=== PATIENT | female | born 1950 | race Caucasian/White ===

== ENCOUNTER 2018-10-15 16:20 | Inpatient (IN) | payer MEDICAID, MEDICARE ==
[~2018-10-15] VITALS: Ht 167.6 cm; Wt 77.1 kg
[~2018-10-15 16:20] MED LIST: ASPI81CT95 PO; ATEN50TA2 PO; CIME400T11 PO; LISI-420 PO; RANI150T8 PO; VIC PO
--- NOTE | 2018-10-15 16:21 | NUR ---
PT BIBA BLS TO BED 7 Addendum: 10/15/18 at 1622 by MED[facility] BED 1
--- NOTE | 2018-10-15 16:21 | NUR ---
NO CALL WAS RECIEVED BEFORE PT ARRIVAL
[2018-10-15 16:25] VITALS: BP 140/67
--- NOTE | 2018-10-15 16:25 | NUR ---
68Y/F BIBA C/O CHEST PAIN AT APPROX. 1530 NON RADIATING/ NON PROVOKED. WITH MINIMAL SOB, NO NAUSEA, NO VOMITING. 02 NRB ON ARRIVAL/FIELD. PT HAS PAIN ON RASH ON GLADYS LEGS. GLADYS LEGS ARE RED AND SWOLLEN WITH BROKEN SKIN. PT AAOX4, VSS AT THIS TIME, BED DOWN, LOW, LOCKED, BEDRAIL UP X 1, ER MD AWARE AND NOTIFIED OF PT STATUS. HX. SHINGLES X3 WKS. ON MEDICATION PER PATIENT. DONT REMEMBER MED. AT THIS TIME. STENTS X2.
--- NOTE | 2018-10-15 16:25 | NUR ---
pt has loulou arm rash and right leg
--- NOTE | 2018-10-15 16:31 | NUR ---
RAD AT BEDSIDE
--- NOTE | 2018-10-15 16:35 | NUR ---
LAB AT BEDSIDE
[2018-10-15] MEDS ORDERED: MORPHINE SULFATE 4 MG/ML SYR IVP ONE (16:50)
[2018-10-15 17:08] LABS: ALBUMIN 3.7 g/dL (3.4-5.0); ANION GAP 8.9 (8-16); CARBON DIOXIDE 27.1 mmol/L (21-32); CREATININE 0.9 mg/dL (0.6-1.3); TOTAL BILIRUBIN 0.2 mg/dL (0.0-1.0)
[2018-10-15] MEDS ORDERED: ONDANSETRON 4 MG/2 ML VIAL IVP PRN (17:50)
[2018-10-15 18:13] LABS: BASOPHILS % (AUTO) 0.4 % (0.0-2.0); EOSINOPHILS # (AUTO) 0.2 K/uL (0-0.4); HEMATOCRIT 37.1 % (36-48); HEMOGLOBIN 12.5 g/dL (12.0-16.0); LYMPHOCYTES % (AUTO) 18.8 % (20.5-51.1); MEAN CORPUSCULAR HEMOGLOBIN 31 pg (27-31); MEAN CORPUSCULAR HGB CONC 34 g/dL (33-37); MONOCYTES # (AUTO) 0.6 K/uL (0.8-1.0); NEUTROPHILS # (AUTO) 7.7 K/uL (1.8-7.7); NEUTROPHILS % (AUTO) 72.8 % (42.2-75.2); PLATELET COUNT (AUTO) 231 K/uL (140-450); RED BLOOD CELL COUNT(AUTO) 4.03 MIL/uL (4.20-5.40); RED CELL DISTRIBUTION WIDTH 13.3 % (11.6-13.7); WHITE BLOOD COUNT (AUTO) 10.6 K/uL (4.8-10.8)
--- NOTE | 2018-10-15 18:21 | NUR ---
Patient will be admitted to care of dr. love. Admited to tele floor. Will go to room 124-b. Belongings list completed. Report to cleopatra nuñez.
--- NOTE | 2018-10-15 18:21 | NUR ---
PT TAKEN TO TELE FLOOR BY RN TATUM AND EMT ANIVAL
[2018-10-15 18:31] LABS: PROTHROMBIN TIME 9.5 secs (10.8-13.4)
[2018-10-15 18:32] LABS: FREE T4 (FREE THYROXINE) 0.64 ng/dL (0.76-1.46); MAGNESIUM 1.8 mg/dL (1.8-2.4); PHOSPHORUS 3.1 mg/dL (2.5-4.9); THYROID STIMULATING HORMONE 1.37 uIU/mL (0.34-3.74)
[2018-10-15 18:35] VITALS: BP 137/61
[2018-10-15] MEDS: NACL 0.9% 500 ML IV SCH (19:10)
[2018-10-15] MEDS ORDERED: NITROGLYCERIN 0.4 MG TAB SL PRN (19:15)
[2018-10-15] MEDS ORDERED: PANT20EC PO (19:28)
[2018-10-15] MEDS ORDERED: ELA50 PO (19:28)
[2018-10-15] MEDS ORDERED: DONE10TA10 PO (19:28)
[2018-10-15] MEDS ORDERED: ATOR20TA PO (19:28)
[2018-10-15] MEDS ORDERED: METO25TA PO (19:28)
[2018-10-15] MEDS ORDERED: ALEN70TA9 PO (19:28)
--- NOTE | 2018-10-15 19:30 | NUR ---
RECEIVED PT FROM JOSE CASON PT AAOX4 AMBULATES WITH SMALL PARTS ASSEMBLER ADMITTING FOR CHEST PAIN, DENIES CHEST PAIN ON ADMISSION, PAIN ;MEDIC WAS GIVEN IN ER, ON TELEMETRY SR, HL ON RT FA PATENT PT ISORIENTED TO ;THE FLOOR CALL LIGHT WITHIN REACH
[2018-10-15] MEDS ORDERED: SERT100T PO (19:38)
[2018-10-15] MEDS ORDERED: GABA300C PO (19:38)
[2018-10-15 20:00] VITALS: BP 130/65
[2018-10-15] MEDS: HYDROcodone/APAP 7.5/325 MG 1 TAB PO PRN (20:52)
[2018-10-15] MEDS: AMITRIPTYLINE 50 MG TAB PO SCH (21:00)
[2018-10-15] MEDS ORDERED: METOPROLOL 25 MG TAB PO SCH (21:00)
[2018-10-15] MEDS: DOCUSATE SODIUM 100 MG GELCAP PO SCH (21:47)
[2018-10-15] MEDS: METOPROLOL 25 MG TAB PO SCH (21:48)
--- NOTE | 2018-10-15 22:00 | NUR ---
PT WATCHING TV NOT DISTRESS NOTED ON TELEMETRY SR , IV ON RT FA INFUSING WELL
[2018-10-15] MEDS ORDERED: MORPHINE SULFATE 4 MG/ML SYR IVP PRN (22:25)
[2018-10-15] MEDS ORDERED: traZODone 50 MG TAB PO ONE (22:25)
[2018-10-16] VITALS: BP 122/62
--- NOTE | 2018-10-16 01:00 | NUR ---
PT SLEEPING WELL ON TELEMETRY SR , IVINFUSING WELL ON RT FA, ON TELEMETRY SR NOT DISTRESS NOTE
[2018-10-16] MEDS: HYDROcodone/APAP 7.5/325 MG 1 TAB PO PRN ×2 (03:48→21:30)
[2018-10-16 04:00] VITALS: BP 140/62
--- NOTE | 2018-10-16 04:00 | NUR ---
SPONGE BATH GIVEN LINEN CHANGED REPOSITIONED Q2H PT USING BSC VOIDING WELL ON TELEMETRY SR
[2018-10-16] MEDS: NACL 0.9% 500 ML IV SCH (05:10)
[2018-10-16] MEDS ORDERED: MORPHINE SULFATE 4 MG/ML SYR IVP PRN (06:40)
[2018-10-16] MEDS: NACL 0.9% 1,000 ML IV SCH (07:01)
[2018-10-16 07:08] LABS: BASOPHILS % (AUTO) 0.3 % (0.0-2.0); EOSINOPHILS # (AUTO) 0.2 K/uL (0-0.4); EOSINOPHILS % (AUTO) 2.6 % (0.0-4.0); HEMATOCRIT 34.9 % (36-48); HEMOGLOBIN 11.3 g/dL (12.0-16.0); LYMPHOCYTES # (AUTO) 2.6 K/uL (2.5-16.5); LYMPHOCYTES % (AUTO) 31.3 % (20.5-51.1); MEAN CORPUSCULAR HEMOGLOBIN 30 pg (27-31); MEAN CORPUSCULAR HGB CONC 33 g/dL (33-37); MEAN CORPUSCULAR VOLUME 93.3 fL (80-94); MONOCYTES # (AUTO) 0.6 K/uL (0.8-1.0); MONOCYTES % (AUTO) 6.7 % (1.7-9.3); NEUTROPHILS # (AUTO) 4.8 K/uL (1.8-7.7); NEUTROPHILS % (AUTO) 59.1 % (42.2-75.2); PLATELET COUNT (AUTO) 198 K/uL (140-450); RED BLOOD CELL COUNT(AUTO) 3.74 MIL/uL (4.20-5.40); RED CELL DISTRIBUTION WIDTH 13.4 % (11.6-13.7); WHITE BLOOD COUNT (AUTO) 8.2 K/uL (4.8-10.8)
--- NOTE | 2018-10-16 07:30 | NUR ---
RECEIVED BEDSIDE REPORT FROM EARTH MOVING TECHNICIAN NURSE. PATIENT IS AWAKE, ALERT AND ORIENTEDX4. PATIENT HAS MOMENTS OF CONFUSION W HX OF DEMENTIA. SHE IS IN NO DISTRESS ON 2L NC. SKIN HAS BUE AND BLE SCABS. IV ON R FA 20G INFUSING NS AT 50. CLEAN, DRY AND INTACT. PATIENT IS WEAK. FALL RISK PROTOCOL PLACED. BEDSIDE COMMODE AT BEDSIDE. TELE MONITOR IN PLACE. BED IN LOW POSITION. CALL LIGHT WITHIN REACH. WILL CONTINUE TO MONITOR THE PATIENT.
[2018-10-16 07:31] LABS: ANION GAP 11.2 (8-16); CARBON DIOXIDE 28.8 mmol/L (21-32); CREATININE 0.9 mg/dL (0.6-1.3)
[2018-10-16 07:36] LABS: MAGNESIUM 1.9 mg/dL (1.8-2.4); PHOSPHORUS 3.9 mg/dL (2.5-4.9)
[2018-10-16 07:52] LABS: CHOL/HDL RATIO 3.8 (1-4.5)
[2018-10-16 08:00] VITALS: BP 105/63
--- NOTE | 2018-10-16 08:01 | NUR ---
PATIENT HAS BEEN SCREENED AND CATEGORIZED MODERATE NUTRITION RISK. PATIENT WILL BE SEEN WITHIN 3-5 DAYS OF ADMISSION. 10/18/18NEREYDA STEVE [address]
[2018-10-16] MEDS: ATORVASTATIN 20 MG TAB PO SCH (08:41)
[2018-10-16] MEDS: ASPIRIN 81 MG TAB.CHEW PO SCH (08:41)
[2018-10-16] MEDS: GABAPENTIN 300 MG CAP PO SCH ×3 (08:42→17:10)
[2018-10-16] MEDS: SERTRALINE 50 MG TAB PO SCH (08:42)
[2018-10-16] MEDS: DONEPEZIL 10 MG TAB PO SCH (08:42)
[2018-10-16] MEDS ORDERED: SERTRALINE 50 MG TAB ONE (08:47)
--- NOTE | 2018-10-16 08:50 | NUR ---
ADMINISTERED MEDS. PATIENT TOLERATED WELL. WILL CONTINUE TO MONITOR THE PATIENT.
[2018-10-16] MEDS: DOCUSATE SODIUM 100 MG GELCAP PO SCH ×2 (08:53→21:07)
[2018-10-16] MEDS ORDERED: ALENDRONATE SODIUM 70 MG TAB PO SCH (09:00)
[2018-10-16] MEDS ORDERED: ATENOLOL 50 MG TAB PO SCH (09:00)
[2018-10-16] MEDS ORDERED: PANTOPRAZOLE 40 MG TABEC PO SCH (09:00)
[2018-10-16] MEDS ORDERED: LISINOPRIL 10 MG TAB PO SCH ×2 (09:00)
[2018-10-16] MEDS ORDERED: ATORVASTATIN 20 MG TAB PO SCH (09:00)
--- NOTE | 2018-10-16 10:00 | NUR ---
PATIENT IN BED. NO SIGNS OF DISTRESS. WILL CONTINUE TO MONITOR THE PATIENT.
--- NOTE | 2018-10-16 11:52 | NUR ---
PATIENT UP AND IN BEDSIDE COMMODE W HELP OF PORCELAIN WAXER. UNABLE TO GET URINE SAMPLE AT THIS TIME. PATIENT URINATED AND HAD BM IN BEDSIDE COMMODE. NEW HAT PLACED IN BEDSIDE COMMODE FOR URINE SAMPLE WHEN PATIENT IS READY
[2018-10-16 12:00] VITALS: BP 140/56
[2018-10-16] MEDS: ACETAMINOPHEN 325 MG TAB PO PRN ×2 (12:01→18:47)
--- NOTE | 2018-10-16 12:03 | NUR ---
ADMINISTERED MEDS. PATIENT TOLERATED WELL. WILL CONTINUE TO MONITOR
--- NOTE | 2018-10-16 14:14 | NUR ---
PATIENT SITTING IN BED WATCHING TV. NO SIGNS OF DISTRESS. WILL CONTINUE TO MONITOR THE PATIENT
--- NOTE | 2018-10-16 15:56 | NUR ---
PATIENT SAID SHE WAS GOING TO URINATE. PATIENT SAT IN BEDSIDE COMMODE, THOUGHT SHE WAS JUST PASSING GAS BUT ALSO HAD A BM. URINE SAMPLE NOT ABLE TO BE COLLECTED AGAIN D/T CONTAMINATION. WILL TRY AGAIN LATER. WILL CONTINUE TO MONITOR. PATIENT WANTED NEW GOWN. SHE REFUSED TO USE YELLOW GOWN. SHE SAID THE COLOR IS BOTHERING HER. EDUCATED ON THE IMPORTANCE OF YELLOW GOWN. PATIENT STILL REFUSED. PATIENT IN REG GOWN NOW
[2018-10-16 16:00] VITALS: BP 106/48
--- NOTE | 2018-10-16 17:11 | NUR ---
ADMINISTERED MEDS. PATIENT TOLERATED WELL. WILL CONTINUE TO MONITOR THE PATIENT.
--- NOTE | 2018-10-16 19:20 | NUR ---
GAVE BEDSIDE REPORT TO WAREHOUSE PICKER NURSE. PATIENT ENDORSED IN STABLE CONDITION
--- NOTE | 2018-10-16 19:21 | NUR ---
RECEIVED REPORT FROM DAY SHIFT NURSE CLARITA-RN AT BEDSIDE. PT RESTING IN BED, AOX4, ON ROOM AIR WITH RIGHT AC#22G ON SALINE LOCK. DISCUSSED PLAN OF CARE AND PT VERBALIZED UNDERSTANDING. NO S/S OF RESPIRATORY DISTRESS OR DISCOMFORT NOTED AT THIS TIME. BED IN LOWEST POSITION, BED BREAKS ON, BOTH SIDE RAILS UP WITH FALL PRECAUTIONS IN PLACE. BEDSIDE TABLE AND CALL LIGHT ARE WITHIN REACH. WILL CONTINUE TO MONITOR.
--- NOTE | 2018-10-16 19:21 | NUR ---
SKIN NON-INTACT. OPEN WOUNDS NOTED ON LEFT LEG AND BILATERAL UPPER EXTREMITIES, SIENA
[2018-10-16 20:00] VITALS: BP 133/47
--- NOTE | 2018-10-16 20:00 | NUR ---
VITAL SIGNS TAKEN AND TOLERATED WELL. NO S/S OF RESPIRATORY DISTRESS OR DISCOMFORT NOTED AT THIS TIME. WILL CONTINUE TO MONITOR.
[2018-10-16 20:50] LABS: BARBITURATE, URINE NEG. ng/ml (NEG <=200); BENZODIAZEPINE, URINE NEG. ng/mL (NEG <=200); CANNABINOID, URINE NEG. ng/mL (NEG <=50); COCAINE, URINE NEG. ng/mL (NEG <=300); OPIATE, URINE POS. ng/mL (NEG <=2000); PHENCYCLIDINE SCREEN,URINE NEG. ng/mL (NEG <=25)
[2018-10-16 20:51] LABS: APPEARANCE,URINE CLEAR (CLEAR); BILIRUBIN,URINE NEGATIVE (NEGATIVE); BLOOD, URINE NEGATIVE (NEGATIVE); COLOR,URINE YELLOW (YELLOW); LEUKOCYTE ESTERASE ,URINE TRACE (NEGATIVE); NITRITE, URINE NEGATIVE (NEGATIVE); UGLUCOSE NEGATIVE (NEGATIVE)
[2018-10-16 20:57] LABS: RBC,URINE NONE SEEN /HPF (0-5); WBC,URINE 6-15 (FEW) /HPF (0-5)
[2018-10-16] MEDS: AMITRIPTYLINE 50 MG TAB PO SCH (21:06)
[2018-10-16] MEDS: METOPROLOL 25 MG TAB PO SCH (21:07)
--- NOTE | 2018-10-16 21:10 | NUR ---
SCHEDULED MEDICATION GIVEN AND TOLERATED WELL. NO S/S OF RESPIRATORY DISTRESS OR DISCOMFORT NOTED AT THIS TIME. WILL CONTINUE TO MONITOR.
--- NOTE | 2018-10-16 21:30 | NUR ---
PT C/O PAIN 03/01 ON OPEN WOUND AND MEDICATED WITH NORCO. PT TOLERATED WELL. NO S/S OF RESPIRATORY DISTRESS OR DISCOMFORT NOTED AT THIS TIME. WILL CONTINUE TO MONITOR.
--- NOTE | 2018-10-16 23:00 | NUR ---
PT CONTINUES SLEEPING IN BED. IV MACHINE CONTINUES TO BEEP DUE TO IV SITE- POSITIONAL CAUSING HIGH PRESSURE ALARM. CONTINUE TO EDUCATE PT TO KEEP ARM STRAIGHT POSSIBLE. NO S/S OF RESPIRATORY DISTRESS OR DISCOMFORT NOTED AT THIS TIME. WILL CONTINUE TO MONITOR.
--- NOTE | 2018-10-17 | NUR ---
VITAL SIGNS TAKEN AND TOLERATED WELL. NO S/S OF RESPIRATORY DISTRESS OR DISCOMFORT NOTED AT THIS TIME. WILL CONTINUE TO MONITOR.
--- NOTE | 2018-10-17 02:00 | NUR ---
PT CONTINUES TO SLEEP IN BED. CONTINUE TO EDUCATE PT TO KEEP ARM STRAIGHT TO PREVENT HIGH PRESSURE ALARM FROM SOUNDING. NO S/S OF RESPIRATORY DISTRESS OR DISCOMFORT NOTED AT THIS TIME. WILL CONTINUE TO MONITOR.
[2018-10-17] MEDS: NACL 0.9% 1,000 ML IV SCH (03:01)
[2018-10-17 04:00] VITALS: BP 98/45
--- NOTE | 2018-10-17 04:00 | NUR ---
VITAL SIGNS TAKEN AND TOLERATED WELL. PT C/O PAIN 03/01 WILL MEDICATE WITH NORCO. NO S/S OF RESPIRATORY DISTRESS OR DISCOMFORT NOTED AT THIS TIME. WILL CONTINUE TO MONITOR.
[2018-10-17] MEDS: HYDROcodone/APAP 7.5/325 MG 1 TAB PO PRN ×2 (04:42→09:38)
--- NOTE | 2018-10-17 04:42 | NUR ---
MEDICATED WITH NORCO FOR PAIN ON OPEN WOUNDS ON SKIN. PT TOLERATED WELL. NO S/S OF RESPIRATORY DISTRESS OR DISCOMFORT NOTED AT THIS TIME. WILL CONTINUE TO MONITOR.
[2018-10-17 06:54] LABS: BASOPHILS % (AUTO) 0.5 % (0.0-2.0); EOSINOPHILS # (AUTO) 0.2 K/uL (0-0.4); EOSINOPHILS % (AUTO) 3.4 % (0.0-4.0); HEMATOCRIT 30.8 % (36-48); HEMOGLOBIN 10.3 g/dL (12.0-16.0); LYMPHOCYTES # (AUTO) 2.4 K/uL (2.5-16.5); LYMPHOCYTES % (AUTO) 32.7 % (20.5-51.1); MEAN CORPUSCULAR HEMOGLOBIN 31 pg (27-31); MEAN CORPUSCULAR HGB CONC 33 g/dL (33-37); MEAN CORPUSCULAR VOLUME 92.4 fL (80-94); MONOCYTES # (AUTO) 0.6 K/uL (0.8-1.0); MONOCYTES % (AUTO) 8.4 % (1.7-9.3); PLATELET COUNT (AUTO) 201 K/uL (140-450); RED BLOOD CELL COUNT(AUTO) 3.34 MIL/uL (4.20-5.40); RED CELL DISTRIBUTION WIDTH 13.3 % (11.6-13.7); WHITE BLOOD COUNT (AUTO) 7.3 K/uL (4.8-10.8)
--- NOTE | 2018-10-17 07:30 | NUR ---
RECEIVED PT ON BED AAOX4. NO SOB NOTED. NO C/O PAIN AT THIS TIME. IV TO RT FOREARM PATENT AND INTACT. CHEST, DIMINISHED ENTRY TO THE BASES, ON ROOM AIR AT 93%. ABDOMEN SOFT, BOWEL SOUNDS PRESENT. BEDSIDE COMMODE PROVIDED. INSTRUCTED PT TO CALL FOR ASSISTANCE, CALL LIGHT WITHIN REACH, PT VERBALIZED UNDERSTANDING.
--- NOTE | 2018-10-17 07:34 | NUR ---
ENDORSED PT CARE TO DAY SHIFT NURSE CHOCO FOR CONTINUITY OF CARE.
[2018-10-17 07:46] LABS: PHOSPHORUS 3.5 mg/dL (2.5-4.9)
[2018-10-17 07:53] LABS: ANION GAP 7.7 (8-16); CARBON DIOXIDE 31.7 mmol/L (21-32); CREATININE 0.8 mg/dL (0.6-1.3); POTASSIUM 4.4 mmol/L (3.5-5.1)
[2018-10-17 08:00] VITALS: BP 115/51
[2018-10-17] MEDS ORDERED: MEMANTINE 10 MG TAB PO SCH (09:00)
[2018-10-17] MEDS ORDERED: FAMOTIDINE 20 MG TAB PO SCH (09:00)
[2018-10-17] MEDS: ASPIRIN 81 MG TAB.CHEW PO SCH (09:38)
[2018-10-17] MEDS: DONEPEZIL 10 MG TAB PO SCH (09:39)
[2018-10-17] MEDS: GABAPENTIN 300 MG CAP PO SCH ×2 (09:39→14:00)
[2018-10-17] MEDS: DOCUSATE SODIUM 100 MG GELCAP PO SCH (09:39)
[2018-10-17] MEDS: ATORVASTATIN 20 MG TAB PO SCH (09:40)
[2018-10-17] MEDS: SERTRALINE 50 MG TAB PO SCH (09:40)
[2018-10-17 12:00] VITALS: BP 114/50
[2018-10-17] MEDS ORDERED: HC A TP (12:24)
--- NOTE | 2018-10-17 13:00 | NUR ---
TRIED TO CONTACT PT'S GATHERING MACHINE SETTER JAVIER WHITE TEL#: [phone], NO ANSWER, LINE NO LONGER IN SERVICE.
--- NOTE | 2018-10-17 14:30 | NUR ---
CHECKED WITH PT REGARDING HER PROGRAMMING INTER[employer]'S PHONE NUMBER, PT STATED HER CELL PHONE IS NOT CHARGED AND SHE CAN NOTE OPEN IT. WILL CHARGE PT'S CELL PHONE AND WILL RECHECK PT'S PROGRAMMING [employer]'S CORRECT NUMBER.
--- NOTE | 2018-10-17 15:38 | NUR ---
PT CALLED AND GOT HOLD OF HER SOCIAL SECURITY BENEFITS INTERVIEWER JAVIER WHITE, STATED SHE WILL BE HERE TO CUSTOMER FACILITIES SUPERVISOR PT IN 30 MINS TO 1 HOUR.
--- NOTE | 2018-10-17 15:52 | NUR ---
SPOKE WITH JAVIER WHITE ON THE PHONE, (PT'S CAREGIVER), STATED SHE WILL BE HERE IN AN HOUR TO DAY CARE PROVIDER PT.
--- NOTE | 2018-10-17 16:40 | NUR ---
DISCHARGE INSTRUCTIONS GIVEN TO PT AND CAREGIVER JAVIER, BOTH VERBALIZED FULL UNDERSTANDING OF THE INSTRUCTIONS GIVEN AND THE NEED TO FOLLOW UP WITH PCP, QUALITY CONTROL HEAD AND AIR TRAFFIC CONTROL SPECIALIST WITHIN 1-2 WEEKS. ARM BANDS AND IV REMOVED, CANNULA TIP INTACT.
--- NOTE | 2018-10-17 16:55 | NUR ---
PT WHEELED OUT TO THE FRONT LOBBY IN STABLE CONDITION. NO SOB NOTED. NO COMPLAINTS MADE. PT IS DISCHARGE HOME WITH CAREGIVER JAVIER. D/C PRESCRIPTIONS SENT TO PT'S PREFERRED PHARMACY ([facility]), CAREGIVER WILL PICK IT UP, VERBALIZED UNDERSTANDING.
[2018-10-19] MEDS ORDERED: ALENDRONATE SODIUM 70 MG TAB PO SCH (09:00)
== END 2018-10-17 16:55 | disposition home or self-care (01) | DRG 243 ==
LOC: MED 16:20 → MTU 17:50
PROVIDERS: ADMIT General Practice; ATTEND General Practice
DX: K21.9 Gastro-esophageal reflux disease without esophagitis (principal); E87.8 Other disorders of electrolyte and fluid balance, not elsewhere classified; G30.9 Alzheimer's disease, unspecified; E11.65 Type 2 diabetes mellitus with hyperglycemia; G62.9 Polyneuropathy, unspecified; T14.8XXA Other injury of unspecified body region, initial encounter; F02.80 Dementia in other diseases classified elsewhere, unspecified severity, without behavioral disturbance, psychotic disturbance, mood disturbance, and anxiety; D64.9 Anemia, unspecified; M94.0 Chondrocostal junction syndrome [Tietze]; E66.3 Overweight; F32.9 Major depressive disorder, single episode, unspecified; M81.0 Age-related osteoporosis without current pathological fracture; G47.00 Insomnia, unspecified; I10 Essential (primary) hypertension; L98.8 Other specified disorders of the skin and subcutaneous tissue; M21.371 Foot drop, right foot; I25.10 Atherosclerotic heart disease of native coronary artery without angina pectoris; Z86.73 Personal history of transient ischemic attack (TIA), and cerebral infarction without residual deficits; Z68.27 Body mass index [BMI] 27.0-27.9, adult; Z71.3 Dietary counseling and surveillance; I25.2 Old myocardial infarction; Z88.8 Allergy status to other drugs, medicaments and biological substances; Z98.61 Coronary angioplasty status; Z90.49 Acquired absence of other specified parts of digestive tract; Z80.0 Family history of malignant neoplasm of digestive organs
CPT/HCPCS: 36415; 71045; 80048; 80053; 80305; 81001; 82150; 83036; 83690; 83735; 83880; 84100; 84439; 84443; 84484; 85025; 85610; 85730; 87040; 87081; 87086; 93005; 93970; 96374; 97530; 99285; J1644; J2270; J7030; Q0092